=== PATIENT | male | born 1930 | race Caucasian/White ===

== ENCOUNTER 2016-10-15 15:06 | Emergency (ER) | payer MEDICARE, BC ==
[2016-10-15] MEDS ORDERED: FENTANYL 250 MCG/5 ML VIAL ONE (15:35)
[2016-10-15] MEDS ORDERED: FENTANYL 100 MCG/2 ML VIAL ONE (16:02)
[2016-10-15] MEDS ORDERED: DIPH,PERTUSS(ACELL),TET VAC/PF 0.5 ML VIAL IM ONE (16:10)
[2016-10-15] MEDS ORDERED: ETOMIDATE 40 MG/20 ML VIAL IV ONE (16:35)
--- NOTE | 2016-10-15 17:38 | CT REPORT ---
HISTORY: Trauma. Fall. COMPARISON: None. TECHNIQUE: This examination was performed using automated exposure control, adjustment of mA or kV according to patient size, and/or use of iterative reconstruction technique. Axial thin section images obtained f rom skull base through head of the clavicles. Sagittal and coronal reformat images obtained. FINDINGS: No acute fracture or traumatic subluxation is demonstrated. Prevertebral soft tissues are normal. Deg enerative disc disease is severe from C3-4 through C6-7. Multilevel facet degenerative arthropathy is present. Craniocervical alignment is normal. IMPRESSION: 1. No acute fracture or traumatic subluxation. 2. Severe degenerative disc disease from C3-4 through C6-7 and multilevel facet arthropathy. Final Electronic Signature: This report was electronically signed by Urbano Tang MD on 10/15/2016 5:36 PM. sam /
--- NOTE | 2016-10-15 17:44 | CT REPORT ---
HISTORY: Fall. Trauma. COMPARISON: None. TECHNIQUE: This examination was performed using automated exposure control, adjustment of mA or kV according to patient size, and/or use of iterative reconstruction technique. Axial noncontrast images of the sinus es obtained with multiplanar reformat images. FINDINGS: A in acute nasal bone fracture is nondepressed. There is a linear lucency in the roof of the left orb it, with small foci of air within the extraconal soft tissues at that site. This may of leaked from t he left frontal sinus.. There is moderate mucosal thickening in the ethmoid sinuses. Mild mucosal thi ckening involves the maxillary sinuses. Mild mucosal thickening or fluid involves the left frontal si nus. The nasal septum is moderately deviated to the right. Soft tissue structures of the orbits appea r normal. A left frontal scalp laceration is present. IMPRESSION: 1. Nondepressed nasal bone fracture. 2. Suspicious for nondisplaced left orbital roof fracture, communicating to the left frontal sinus. A ssociated small foci of air within the superior aspect of the left orbit. No intraorbital soft tissue injury. A small amount of fluid or mucosal thickening in the left frontal sinus. 3. Inflammatory disease of other paranasal sinuses, as described. Final Electronic Signature: This report was electronically signed by Ubrano Tang MD on 10/15/2016 5:41 PM. sam /
--- NOTE | 2016-10-15 17:47 | CT REPORT ---
HISTORY: Fall. Trauma. COMPARISON: None. TECHNIQUE: Axial non-contrast images obtained from skull vertex through foramen magnum. Dose reduction technique was utilized. FINDINGS: There is mild diffuse cerebral atrophy. Ventricles are normal in size. No intracranial hemorrhage is demonstrated. Minimal chronic small vessel ischemic disease is present. There appears to be a fracture of the left orbital roof. Mild mucosal thickening or fluid is present within the left frontal sinus. No other fractures are demonstrated. There is a left frontal scalp lac eration. IMPRESSION: 1. No intracranial hemorrhage. Mild diffuse cerebral atrophy and mild chronic small vessel ischemic d isease. 2. Suspicion for nondisplaced left orbital roof fracture, with mucosal thickening or fluid in the lef t frontal sinus. Overlying left frontal scalp laceration. This report was discussed with Dr. Carpenter on 10/15/2016 at 5:40 PM. Final Electronic Signature: This report was electronically signed by Urbano Tang MD on 10/15/2016 5:45 PM. sam /
[2016-10-15 18:08] LABS: BASOPHILS 0.8 % (0.0-2.0); EOSINOPHILS 3.8 % (0.0-6.0); EOSINOPHILS# 0.2 X 10^3uL (0.0-0.4); HEMATOCRIT 43.4 % (42.0-54.0); HEMOGLOBIN 15.2 g/dL (14.0-18.0); LYMPHOCYTES 42.9 % (20.0-40.0); LYMPHOCYTES# 2.5 X 10^3uL (0.8-3.8); MEAN CELL VOLUME 95.7 fL (80.0-100.0); MEAN CORPUS. HGB CONCENTRATION 34.9 g/dL (32.0-36.0); MEAN CORPUSCULAR HEMOGLOBIN 33.4 pg (29.0-35.0); MEAN PLATELET VOLUME 9.1 fL (7.4-10.4); MONOCYTES# 0.5 X 10^3uL (0.2-1.0); NEUTROPHILS 43.5 % (54.0-75.0); NEUTROPHILS# 2.4 X 10^3uL (2.6-6.7); PLATELET COUNT 165 X 10^3uL (130-440); RED BLOOD COUNT 4.54 X 10^6uL (4.20-6.10); RED CELL DISTRIBUTION WIDTH 12.4 % (11.5-14.5); WHITE BLOOD COUNT 5.6 X 10^3uL (3.9-10.7)
[2016-10-15 18:16] LABS: A/G RATIO 1.4; ALBUMIN 4.1 g/dL (3.5-5.0); ALKALINE PHOSPHATASE 82 U/L (38-126); ALT 38 U/L (21-72); AST 29 U/L (17-59); BILIRUBIN, TOTAL 0.8 mg/dL (0.2-1.3); BLOOD UREA NITROGEN 10 mg/dL (9-20); CHLORIDE 103 mmol/L (98-107); GLUCOSE 128 mg/dL (70-100); SODIUM 138 mmol/L (137-145)
[2016-10-15 18:23] LABS: INR 1.1
[2016-10-15] MEDS ORDERED: HYDROmorphone HCL 1 MG/ML SYR ONE (18:33)
--- NOTE | 2016-10-15 18:41 | ER NURSING DOCUMENTATION ---
Nurse's Notes [facility] Name:Varinder Red Age:86 yrs Sex:Male :1930 Arrival Date:10/15/2016 Time:15:06 Bed4 Private MD: Diagnosis:Head Injury;Nasal Bone Fracture;Orbital Fracture;Dislocation of Shoulder;Humeral Neck Fracture Presentation: 10/15 15:15 Acuity: ANGEL 2 st 15:26 Presenting complaint: Patient states: pt states he was trying to ride herd on his 18 [address] month old great grand son and tripped and fell on extended hands now he has a facial lac nasal swelling and bilateral shoulder pain. Care prior to arrival: Medication(s) given: Fentanyl 100mcg Intranasal. Mechanism of Injury: Fall from standing position. Trauma event details: Injury occurred October 15, 2016. 15:26 Method Of Arrival: Private Vehicle st 15:35 Transition of care: patient was not received from another setting of care. st Historical: - Allergies: No known drug Allergies; - Home Meds: 1. Aspirin Oral 2. Oxybutynin Chloride Oral 3. tamsulosin oral 4. Nexium Oral - PMHx: Hypertension; CAD; - PSHx: CABG; bipass; right rotator cuff repair; HERNIA REPAIR; coranary bipass; - Immunization history: Pneumococcal vaccine status is unknown. - Ebola Screening: : Patient denies exposure to infectious person. Patient denies travel to an Ebola-affected area in the 21 days before illness onset. . - Tetanus: unknown. - Social history: Smoking status: Patient states former smoker of tobacco. Patient uses alcohol occasionally. Screenin:34 Abuse screen: no reasons for suspicions noted. Nutritional screening: No deficits st noted. Tuberculosis screening: No symptoms or risk factors identified. 15:35 Infectious Disease Risk None. st Primary Survey: 15:33 Airway: patent. Breathing/Chest: Respiratory pattern: regular, Respiratory effort: st spontaneous, unlabored. Circulation: Pulses: palpable right radial artery and left radial artery. Assessment: 15:29 General: Appears uncomfortable, Behavior is cooperative. Pain: Complains of pain in st forehead, nose, anterior aspect of right shoulder, posterior aspect of right shoulder, anterior aspect of left shoulder and posterior aspect of left shoulder Pain currently is 5 out of 10 on a pain scale. Neuro: Level of Consciousness is awake, alert, Oriented to person, place, time, event. Cardiovascular: No deficits noted. Respiratory: No deficits noted. GI: No deficits noted. Derm:. Musculoskeletal: Circulation, motion, and sensation intact Range of motion limited in right shoulder Swelling present in nose Reports pain in anterior aspect of right shoulder, posterior aspect of right shoulder, anterior aspect of left shoulder and posterior aspect of left shoulder. 16:49 General: pt is alert and talking he states his pain is almost gone.. st 18:27 General: pt resting quietly. pt states he only has pain with movement. . st Vital Signs: 15:33 BP 160 / 68; Pulse 77; Resp 18; Pulse Ox 92% on R/A; Pain 6/10; st 16:07 Pulse 78 MON; Resp 14; Pulse Ox 93% ; st 16:09 BP 165 / 85 (auto/); st 16:11 Pain 4/10; st 16:22 Pulse 71 MON; Resp 18; Pulse Ox 94% ; st 16:26 BP 161 / 80 (auto/); st 16:27 Pulse 73 MON; Resp 18; Pulse Ox 98% ; st 16:30 BP 173 / 85 (auto/); st 16:32 Pulse 67 MON; Resp 25; Pulse Ox 93% ; st 16:36 BP 173 / 87 (auto/); st 16:37 Pulse 78 MON; Resp 19; Pulse Ox 95% ; st 16:40 BP 173 / 91 (auto/); st 16:42 Pulse 83 MON; Resp 14; Pulse Ox 98% ; st 16:45 BP 174 / 69 (auto/); st 16:47 Pulse 77 MON; Resp 10; st 16:49 Pain 1/10; st 17:17 Temp 97.6; st 17:17 BP 164 / 72 (auto/); st 17:30 BP 161 / 70 (auto/); st 18:00 BP 159 / 70 (auto/); Pulse 82; Pulse Ox 95% ; st 18:02 Pulse Ox 95% ; st [place] Coma Score: 16:42 Eye Response: spontaneous(4). Verbal Response: oriented(5). Motor Response: obeys st commands(6). Total: 15. 17:20 Eye Response: spontaneous(4). Verbal Response: oriented(5). Motor Response: obeys st commands(6). Total: 15. 18:00 Eye Response: spontaneous(4). Verbal Response: oriented(5). Motor Response: obeys st commands(6). Total: 15. Trauma Score (Adult): 15:33 Eye Response: spontaneous(1); Verbal Response: oriented(1); Motor Response: obeys st commands(2); Systolic BP: > 89 mm Hg(4); Respiratory Rate: 10 to 29 per min(4); Rachel Score: 15; Trauma Score: 12 ED Course: 15:11 Patient arrived in ED. cj 15:15 Aruna Raymundo, RN is Primary Nurse. st 15:[address] 15:22 Sourav Carpenter MD is Attending Physician. tl1 15:23 Inserted peripheral IV: 20 gauge in left forearm and blood collected. st 15:30 Oxygen Oxygen administration via nasal cannula @ 2L/min. st 15:34 Valuables Remains with patient Patient has correct armband on for positive st identification. Bed in low position. Side rails up X2. 15:51 Port Xray Completed. ms 15:57 Ice pack to injury. nose and shoulders. 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 Pulse ox on. NIBP on. st 16:42 Wound care was Irrigation Normal Saline. st 16:48 POST REDUCTION PORT. hz 16:[address] hz 17:06 Patient [address] back from [address]. hz 17:39 Assist Provider Assist provider with laceration repair using sutures. Set up tray. st Performed by Sourav Carpenter MD. 17:58 Sling applied to right arm. left arm. Sling & swathe to. st 18:[address] M. Sedation: 16:07 Pre-procedure: Name of procedure: right shoulder reduction. The physician performing st procedure is the same physician who will be administering the sedation, Sourav Carpenter MD Sedation Score Active motion (2 points) Able to cough/deep breath (2 points) Fully awake (2 points) [place]/normal (2 points) BP +/- 20% of pre sedation value (2 points) Reviewed patient's current meds list. telephone directory distributor driver on. Cardiac rhythm Sinus rhythm Pulse ox on. Oxygen via nasal cannula @ 2L/min. 16:17 Pre-procedure: Rina GALEAS at bedside. st Administered Medications: 15:53 Drug: fentaNYL (PF) 50 mcg; Route: IVP; Site: left forearm; st 16:43 Follow up: Response: Pain is decreased st 16:05 Drug: Tetanus-Diphtheria Toxoid Adult 0.5 ml; {Film Editor: [employer] ([employer]). st Exp: 06/14/2018. Lot #: [id number]. } Route: IM; Site: left deltoid; 16:43 Follow up: Response: No adverse reaction st 16:09 Drug: NS 0.9% 1000 ml; Route: IV; Rate: 100 ml/hr; Site: left forearm; st 18:20 Follow up: IV Status: Infusing continued upon transfer; IV Intake: 450ml st 16:30 Drug: fentaNYL (PF) 50 mcg; Route: IVP; Site: left forearm; st 16:43 Follow up: Response: Pain is decreased st 18:24 Drug: Dilaudid 0.5 mg; Route: IVP; Site: left forearm; st 18:33 Follow up: Response: Medication administered at discharge. st Intake: 18:20 IV: 450ml; Total: 450ml. st 18:32 PO: 0ml; Total: 450ml. st Outcome: 18:00 ER care complete, transfer ordered by tl1 18:04 Transferred: Patient will be transferred to: [facility]. Facility st Acceptance Time: October 15, 2016 at 18:05 Patient's face sheet was faxed to accepting facility. Face Sheet included patient's name, address, age, gender, contact information and insurance information. Patient will be transported by: [facility] ground. 18:19 Transferred: Report called to: Sofi Garcia in the ED st 18:19 Condition: stable 18:19 Instructed on need for transfer 18:40 Patient left the ED. st Signatures: Aruna Raymundo RN Rina Becerra ms, Meg, RN Sourav George MD MD tl1 Torri Pérez Sheron Lima
--- NOTE | 2016-10-15 18:41 | ER PHYSICIAN DOCUMENTATION ---
Physician Documentation [facility] Name:Varinder Red Age:86 yrs Sex:Male :1930 Arrival Date:10/15/2016 Time:15:06 Bed4 Private MD: Sourav Bianchi Disposition: 10/15 18:34 Chart complete. tl1 Disposition: 10/15/16 18:00 Transfer ordered to [facility]. Diagnosis are Head Injury, Nasal Bone Fracture, Orbital Fracture, Dislocation of Shoulder, Humeral Neck Fracture. - Reason for transfer: Specialty. - Accepting physician is Dr Tan. - Condition is Good. - Problem is new. - Symptoms have improved. COBRA Form completed? Yes Transfer - Mode of Transportation Ambulance HPI: 15:24 This 86 yrs old Male presents to ER with complaints of Bilateral shoulder tl1 injury. 15:24 Details of fall: The patient fell from an upright position. Onset: The tl1 symptom(s)/episode began/occurred suddenly, just prior to arrival. 16:52 He stumbled over his toddler grandson. He put his arms out to break his fall and tl1 injured both shoulders. The right is obviously. He is quite demented and cannot give further details. He did hit his head, AND has an obvious nasal fracture, deviated about 4 mm to the left. No LOC. Denies h/a, N/W/T. No chest, back, abdominal or other extremity pain. Historical: - Allergies: No known drug Allergies; - Home Meds: 1. Aspirin Oral 2. Oxybutynin Chloride Oral 3. tamsulosin oral 4. Nexium Oral - PMHx: Hypertension; CAD; - PSHx: CABG; bipass; right rotator cuff repair; HERNIA REPAIR; coranary bipass; - Immunization history: Pneumococcal vaccine status is unknown. - Ebola Screening: : Patient denies exposure to infectious person. Patient denies travel to an Ebola-affected area in the 21 days before illness onset. . - Tetanus: unknown. - Social history: Smoking status: Patient states former smoker of tobacco. Patient uses alcohol occasionally. ROS: 18:05 ENT: Positive for nasal fracture. tl1 18:05 MS/extremity: Positive for injury or acute deformity. 18:05 Neuro: Positive for left forehead 2.5 cm laceration. Exam: 18:07 Constitutional: The patient appears alert, awake, well developed, well groomed, well tl1 nourished, in obvious distress, mildly distressed, in obvious pain, uncomfortable. 18:07 Head/face: Noted is deformity, of the bridge of nose, a laceration(s), that is superficial, that is jagged, 2.5 cm(s), of the left side of forehead, Sinus tenderness, that is moderate, is located over the left frontal sinus. 18:07 Eyes: Periorbital structures: appear normal, Pupils: equal, round, and reactive to light and accomodation, Extraocular movements: intact throughout. 18:07 ENT: Nose: External nose: deformity is noted, laceration is present, approximately 0.2 cm(s), Mouth: Oral mucosa: pink and intact, dry, Posterior pharynx: is normal, Voice: is normal. 18:07 Neck: External neck: is normal, C-spine: vertebral tenderness, that is mild, appreciated at C3, C4 and C5, ROM/movement: is normal, Lymph nodes: no appreciated lymphadenopathy. 18:07 Chest/axilla: Inspection: normal, well healed old midline sternotomy scar., Palpation: is normal, no crepitus, no tenderness. 18:07 Cardiovascular: Rate: normal, Rhythm: regular, Heart sounds: normal. 18:07 Respiratory: Respirations: normal, Breath sounds: are normal. 18:07 Abdomen/GI: Inspection: abdomen appears normal, Palpation: abdomen is soft and non-tender. 18:07 Back: pain, is absent, CVA tenderness, is absent, vertebral tenderness, is not appreciated. 18:07 Musculoskeletal/extremity: Extremities: grossly normal except: noted in the anterior aspect of right shoulder: deformity, noted in the anterior aspect of left shoulder and posterior aspect of left shoulder: decreased ROM, swelling, tenderness, ROM: limited active range of motion, limited passive range of motion, in the left shoulder and right shoulder, Circulation is intact in all extremities. 18:07 Skin: lesion(s), located on the left side of forehead. 18:07 Neuro: Orientation: appropriate for stated age, Mentation: lucid, Cranial nerves: grossly normal, Motor: moves all fours. Vital Signs: 15:33 BP 160 / 68; Pulse 77; Resp 18; Pulse Ox 92% on R/A; Pain 6/10; st 16:07 Pulse 78 MON; Resp 14; Pulse Ox 93% ; st 16:09 BP 165 / 85 (auto/); st 16:11 Pain 4/10; st 16:22 Pulse 71 MON; Resp 18; Pulse Ox 94% ; st 16:26 BP 161 / 80 (auto/); st 16:27 Pulse 73 MON; Resp 18; Pulse Ox 98% ; st 16:30 BP 173 / 85 (auto/); st 16:32 Pulse 67 MON; Resp 25; Pulse Ox 93% ; st 16:36 BP 173 / 87 (auto/); st 16:37 Pulse 78 MON; Resp 19; Pulse Ox 95% ; st 16:40 BP 173 / 91 (auto/); st 16:42 Pulse 83 MON; Resp 14; Pulse Ox 98% ; st 16:45 BP 174 / 69 (auto/); st 16:47 Pulse 77 MON; Resp 10; st 16:49 Pain 1/10; st 17:17 Temp 97.6; st 17:17 BP 164 / 72 (auto/); st 17:30 BP 161 / 70 (auto/); st 18:00 BP 159 / 70 (auto/); Pulse 82; Pulse Ox 95% ; st 18:02 Pulse Ox 95% ; st [place] Coma Score: 16:42 Eye Response: spontaneous(4). Verbal Response: oriented(5). Motor Response: obeys st commands(6). Total: 15. 17:20 Eye Response: spontaneous(4). Verbal Response: oriented(5). Motor Response: obeys st commands(6). Total: 15. 18:00 Eye Response: spontaneous(4). Verbal Response: oriented(5). Motor Response: obeys st commands(6). Total: 15. Trauma Score (Adult): 15:33 Eye Response: spontaneous(1); Verbal Response: oriented(1); Motor Response: obeys st commands(2); Systolic BP: > 89 mm Hg(4); Respiratory Rate: 10 to 29 per min(4); [place] Score: 15; Trauma Score: 12 Procedures: 18:15 Reduction: of the right shoulder, using traction, Immobilized with sling, Patient tl1 tolerated well. Post reduction film - reveals normal alignment. Performed Sling to left arm. Laceration: 18:15 Wound Repair of 2.5cm ( 1.0in ) subcutaneous laceration to left side of forehead. tl1 Distal neuro/vascular/tendon intact. Anesthesia: Wound infiltrated with 3 mls of 2% lidocaine w/ Epi. Wound prep: Extensive cleansing, Wound irrigation, Wound explored. Skin closed with 4-0 Nylon using Simple sutures. Dressed with Bacitracin, 4x4's. Patient tolerated well. MDM: 15:22 Patient medically screened. tl1 18:21 Differential diagnosis: closed head injury, fracture, laceration, right shoulder . Data tl1 reviewed: and as a result, I will *Transfer Patient. Test interpretation: by ED physician or midlevel provider: plain radiologic studies. Counseling: I had a detailed discussion with the patient and/or guardian regarding: the historical points, exam findings, and any diagnostic results supporting the discharge/admit diagnosis, lab results, radiology results, the need to transfer to another facility. Medication response: The patient's symptoms have improved, Dilaudid. Response to treatment: the patient's symptoms have markedly improved after treatment, and as a result, I will Transfer to [facility], Dr Rosamaria Tan accepting for the trauma service.. Physician consultation: Rosamaria Tan was called at 18:00, was contacted at 18:05, regarding admission, patient's condition, and will see patient in ED, at [facility]. ED course: Hemodynamically and neurologically stable. Lac sutured. Pain controlled with fentanyl and dilaudid. Right shoulder dislocation reduced by me. Good post reduction films.. 10/15 18:13 Order name: CBC AUTO DIF, MDIF/RMOR IF IND; Complete Time: 13:04 EDMS 10/16 13:01 Interpretation: WHITE BLOOD COUNT 5.6; HEMOGLOBIN 15.2; PLATELET COUNT 165; NEUTROPHILS tl1 43.5; LYMPHOCYTES 42.9; MONOCYTES 9.0. 10/15 18:18 Order name: COMPREHENSIVE METABOLIC PANEL; Complete Time: 13:04 EDMS 10/16 13:01 Interpretation: Normal. tl1 10/15 18:25 Order name: PROTIME/INR; Complete Time: 13:04 EDMS 10/16 13:01 Interpretation: Normal: PROTIME 14.9; INR 1.1. tl1 10/15 17:40 Order name: CAT SCAN; CERVICAL [id number]; Complete Time: 13:04 EDMS 10/16 13:01 Interpretation: See report. tl1 10/15 17:45 Order name: CATSCAN;MAXILLOFAC W/O [id number]; Complete Time: 13:04 EDMS 10/16 13:04 Interpretation: Nasal fracture, probable non displaced left superior orbit fracture. tl1 10/15 17:48 Order name: CAT SCAN; HEAD W/O CON [id number]; Complete Time: 13:04 EDMS 10/16 13:04 Interpretation: nad. tl1 10/15 16:06 Order name: Cardiac Monitoring - Continuous; Complete Time: 16:06 st 10/15 16:06 Order name: Pulse Ox Continuous; Complete Time: 16:06 st Dispensed Medications: 15:53 Drug: fentaNYL (PF) 50 mcg; Route: IVP; Site: left forearm; st 16:43 Follow up: Response: Pain is decreased st 16:05 Drug: Tetanus-Diphtheria Toxoid Adult 0.5 ml; {Natural Resource Officer: [employer] ([employer]). st Exp: 06/14/2018. Lot #: [id number]. } Route: IM; Site: left deltoid; 16:43 Follow up: Response: No adverse reaction st 16:09 Drug: NS 0.9% 1000 ml; Route: IV; Rate: 100 ml/hr; Site: left forearm; st 18:20 Follow up: IV Status: Infusing continued upon transfer; IV Intake: 450ml st 16:30 Drug: fentaNYL (PF) 50 mcg; Route: IVP; Site: left forearm; st 16:43 Follow up: Response: Pain is decreased st 18:24 Drug: Dilaudid 0.5 mg; Route: IVP; Site: left forearm; st 18:33 Follow up: Response: Medication administered at discharge. st Signatures: Aruna Raymundo RN RN st Kruger, Meg RN Sourav George MD MD tl1
--- NOTE | 2016-10-16 07:59 | RADIOLOGY REPORT ---
Three views of the left shoulder demonstrate essentially nondisplaced fractures of the neck and greater tuberosity of the proximal humerus. The humeral head is located within the glenoid fossa. No other abnormality is identified. IMPRESSION: Essentially nondisplaced three part fracture of the left proximal humerus. MTDD
--- NOTE | 2016-10-16 08:01 | RADIOLOGY REPORT ---
Initial views of the right shoulder at 1535 hours demonstrates anterior and inferior dislocation of the humerus with the humerus in an abducted position. No fracture is identified on these limited views. Additional views at 1639 hours demonstrates interval reduction. No new abnormality is identified. IMPRESSION: Anterior and inferior dislocation of the right shoulder with subsequent reduction. MTDD
== END 2016-10-15 18:40 | disposition short-term general hospital (02) ==
LOC: ER 15:06
DX: S02.2XXA Fracture of nasal bones, initial encounter for closed fracture (principal); S01.81XA Laceration without foreign body of other part of head, initial encounter; S02.19XA Other fracture of base of skull, initial encounter for closed fracture; S43.014A Anterior dislocation of right humerus, initial encounter; S43.034A Inferior dislocation of right humerus, initial encounter; S42.232A 3-part fracture of surgical neck of left humerus, initial encounter for closed fracture; E86.0 Dehydration; W01.0XXA Fall on same level from slipping, tripping and stumbling without subsequent striking against object, initial encounter; Y92.59 Other trade areas as the place of occurrence of the external cause; Y93.01 Activity, walking, marching and hiking; Z74.3 Need for continuous supervision; I25.10 Atherosclerotic heart disease of native coronary artery without angina pectoris; I10 Essential (primary) hypertension; Z79.82 Long term (current) use of aspirin; Z79.899 Other long term (current) drug therapy
CPT/HCPCS: 12051; 70450; 70486; 72125; 73030; 80053; 85025; 85610; 90471; 96361; 96374; 96375; 96376; 99140; 99285; A0425; A0427; A0429; J1170